=== PATIENT | male | born 1975 | race Caucasian/White ===

== ENCOUNTER 2018-06-30 08:56 | Outpatient (CLI) | payer OTHER, SELFPAY ==
[2018-06-30 10:32] LABS: Anion Gap 8.9 mmol/L (3-11); BUN 11 mg/dL (7-18); CO2 29.1 mmol/L (21.0-32.0); CREATININE 1.01 mg/dL (0.70-1.30); Calcium 9.3 mg/dL (8.5-10.1); Chloride 102 mmol/L (98-107); Glucose 99 mg/dL (70-100); Potassium 3.8 mmol/L (3.5-5.1); Sodium 140 mmol/L (136-145)
== END 2018-06-30 09:16 ==
PROVIDERS: PCP Family Medicine; Visit Provider Family Medicine
DX: I10 Essential (primary) hypertension (principal)
CPT/HCPCS: 36415; 80048

== ENCOUNTER 2019-02-02 01:25 | Outpatient (CLI) | payer OTHER, SELFPAY ==
--- NOTE | 2019-02-02 14:59 | DI.RAD_ITS ---
EXAM: XR FOOT RT COMPLETE INDICATION: growth on heel, R22.9-localized swelling, mass and lump, unspecified. COMPARISON: No exams were available for comparison TECHNIQUE: 2D digital imaging was performed. FINDINGS: The site of the mass is not indicated on the requisition. No mass is identified. There is a small a ccessory navicular. The joint spaces are well maintained. There are no bony erosions. IMPRESSION: No acute abnormality.
== END 2019-02-02 01:45 ==
PROVIDERS: PCP Family Medicine; Visit Provider Internal Medicine
DX: R22.41 Localized swelling, mass and lump, right lower limb (principal)
CPT/HCPCS: 73630

== ENCOUNTER 2019-11-16 02:03 | Outpatient (CLI) | payer OTHER, SELFPAY ==
[2019-11-16 09:09] LABS: Anion Gap 6.4 mmol/L (3-11); BUN 16 mg/dL (7-18); CO2 29.6 mmol/L (21.0-32.0); CREATININE 1.13 mg/dL (0.70-1.30); Calcium 9.1 mg/dL (8.5-10.1); Chloride 103 mmol/L (98-107); Glucose 110 mg/dL (74-106); Potassium 3.6 mmol/L (3.5-5.1); Sodium 139 mmol/L (136-145)
== END 2019-11-16 02:23 ==
PROVIDERS: PCP Family Medicine; Visit Provider Family Medicine
DX: I10 Essential (primary) hypertension (principal)
CPT/HCPCS: 36415; 80048

== ENCOUNTER 2020-06-13 02:34 | Outpatient (CLI) | payer OTHER, SELFPAY ==
[2020-06-13 08:24] LABS: Hemoglobin A1C 5.7 % (<5.7)
[2020-06-13 09:09] LABS: Calculated LDL 127 mg/dL (<100); Cholesterol 185 mg/dL (<200); HDL Cholesterol 44 mg/dL (40-60); Triglyceride 74 mg/dL (<150)
== END 2020-06-13 02:35 | disposition home or self-care (01) ==
LOC: LBO 02:34
PROVIDERS: PCP Nurse Practitioner; Visit Provider Nurse Practitioner
DX: Z13.1 Encounter for screening for diabetes mellitus (principal); Z13.6 Encounter for screening for cardiovascular disorders
CPT/HCPCS: 36415; 80061; 83036

== ENCOUNTER 2021-07-17 02:14 | Outpatient (CLI) | payer BC, SELFPAY ==
[2021-07-17 12:38] LABS: Anion Gap 10.3 mmol/L (3-11); BUN 14 mg/dL (7-18); CO2 25.7 mmol/L (21.0-32.0); Calcium 8.8 mg/dL (8.5-10.1); Chloride 105 mmol/L (98-107); Glucose 108 mg/dL (74-106); Potassium 3.9 mmol/L (3.5-5.1); Sodium 141 mmol/L (136-145)
[2021-07-17 13:38] LABS: Hemoglobin A1C 5.6 % (<5.7)
== END 2021-07-17 02:15 | disposition home or self-care (01) ==
LOC: LOS 02:15
PROVIDERS: PCP Nurse Practitioner; Visit Provider Nurse Practitioner
DX: R73.03 Prediabetes (principal); I10 Essential (primary) hypertension
CPT/HCPCS: 36415; 80048; 83036

== ENCOUNTER 2021-10-27 01:44 | Outpatient (CLI) | payer BC, SELFPAY ==
[2021-10-27 15:10] LABS: Abs Immature Grans 0.02 10^3/uL (0.0-0.06); Absolute Basophil Count 0.02 10^3/uL (0.0-0.2); Absolute Eosinophil Count 0.12 10^3/uL (0.0-0.7); Absolute Lymphocyte Count 2.04 10^3/uL (1.2-3.4); Absolute Monocyte Count 0.59 10^3/uL (0.1-0.8); Absolute Neutrophil Count 3.99 10^3/uL (1.2-6.7); Basophils % 0.3; Eosinophils % 1.8; HCT 42.3 % (40.0-50.0); HGB 14.6 g/dL (13.5-17.5); Immature Grans % 0.3; Lymphocytes % 30.1; MCH 27.9 pg (27.0-33.0); MCHC 34.5 % (32.0-36.0); MCV 81 fL (80-95); MPV 9.9 fL (8.0-11.0); Monocytes % 8.7; Neutrophils % 58.8; Platelet Count 210 10^3/uL (130-400); RBC 5.23 10^6/uL (4.36-5.78); RDW-SD 35.3 fL; WBC 6.78 10^3/uL (4.4-10.8)
[2021-10-27 15:42] LABS: PTT Activated 25.9 sec (21.0-27.5); Prothrombin Time 9.9 sec (9.3-11.0)
== END 2021-10-27 01:45 | disposition home or self-care (01) ==
LOC: LBO 01:45
PROVIDERS: PCP Nurse Practitioner; Visit Provider Physician Assistant
DX: R21 Rash and other nonspecific skin eruption (principal); R60.0 Localized edema; I10 Essential (primary) hypertension
CPT/HCPCS: 36415; 85025; 85610; 85730

== ENCOUNTER 2023-02-04 00:52 | Outpatient (CLI) | payer BC, SELFPAY ==
[2023-02-04 09:04] LABS: Calculated LDL 113 mg/dL (<100); Cholesterol 177 mg/dL (<200); HDL Cholesterol 45 mg/dL (40-60); Triglyceride 97 mg/dL (<150)
== END 2023-02-04 00:53 | disposition home or self-care (01) ==
PROVIDERS: PCP Family Medicine; Visit Provider Family Medicine
DX: E11.51 Type 2 diabetes mellitus with diabetic peripheral angiopathy without gangrene (principal); E78.5 Hyperlipidemia, unspecified
CPT/HCPCS: 36415; 80061; 83036

== ENCOUNTER 2024-01-06 01:28 | Outpatient (CLI) | payer OTHER, SELFPAY ==
[2024-01-06 12:59] LABS: CREATININE 1.1 mg/dL (0.70-1.30); Estimated GFR 83.32 (mL/min/1.73m2); Potassium 3.8 mmol/L (3.5-5.1)
[2024-01-06 13:10] LABS: Hemoglobin A1C 5.8 % (<5.7)
[2024-01-06 22:29] LABS: PSA, Screening 0.3 ng/mL (<=2.5)
== END 2024-01-06 01:29 | disposition home or self-care (01) ==
PROVIDERS: PCP Family Medicine; Visit Provider Family Medicine
DX: I10 Essential (primary) hypertension (principal); Z12.5 Encounter for screening for malignant neoplasm of prostate; E11.51 Type 2 diabetes mellitus with diabetic peripheral angiopathy without gangrene; I70.209 Unspecified atherosclerosis of native arteries of extremities, unspecified extremity
CPT/HCPCS: 36415; 84153; 82565; 83036; 84132

== ENCOUNTER 2025-01-03 09:29 | Outpatient (CLI) | payer OTHER, SELFPAY ==
[2025-01-03 14:16] LABS: Estimated GFR 67.76 (mL/min/1.73m2); Potassium 3.3 mmol/L (3.5-5.1)
[2025-01-03 14:22] LABS: Hemoglobin A1C 6.0 % (<5.7)
== END 2025-01-03 09:30 | disposition home or self-care (01) ==
PROVIDERS: PCP Family Medicine; Visit Provider Family Medicine
DX: I10 Essential (primary) hypertension (principal); R73.9 Hyperglycemia, unspecified
CPT/HCPCS: 36415; 82565; 83036; 84132